=== PATIENT | male | born 1940 | race Caucasian/White ===

== ENCOUNTER 2017-09-01 12:52 | Emergency (ER) ==
[2017-09-01 13:43] LABS: #Basophils 0.1 thou/uL (0.0-0.2); #Eosinphils 0.1 thou/uL (0.0-0.7); #Monocytes 0.7 thou/uL (0.11-0.59); #Neutrophils 7.7 thou/uL (1.40-6.50); %Basophils 0.5 % (0.0-1.0); %Eosinophils 1.1 % (0.0-10.0); %Lymphocytes 19.1 % (21.0-51.0); %Monocytes 6.6 % (0.0-10.0); %Neutrophils 72.6 % (42.0-75.0); Hemoglobin 12.3 g/dL (14.0-18.0); Mean Corpuscular HGB CONC 30.7 g/dL (32.0-36.0); Mean Corpuscular Hemoglobin 27.6 pg (27.0-31.0); Mean Corpuscular Volume 90.1 fl (80.0-94.0); Mean Platelet Volume 7.2 fL (7.4-10.4); Platelet Count 224 thou/uL (130-400); RBC Distribution Width 13.1 % (11.5-14.5); Red Blood Cell (RBC) Count 4.46 mill/uL (4.70-6.10); White Blood Cell (WBC) Count 10.6 thou/uL (4.8-10.8)
== END 2017-09-01 14:32 | disposition home or self-care (01) ==
LOC: ERS 12:52
DX: K92.2 Gastrointestinal hemorrhage, unspecified (principal); I10 Essential (primary) hypertension; N40.1 Benign prostatic hyperplasia with lower urinary tract symptoms; R33.8 Other retention of urine; Z79.899 Other long term (current) drug therapy
CPT/HCPCS: 36415; 85025; 99285

== ENCOUNTER 2017-09-12 12:34 | Day surgery (SDC) | payer MEDICARE ==
[2017-09-11 09:19] VITALS: BMI 42.9
[2017-09-12] MEDS ORDERED: PROPOFOL 200 MG/20 ML VIAL ONE (14:59)
--- NOTE | 2017-09-12 17:45 | OP ---
DATE OF PROCEDURE: 09/12/2017 PROCEDURE PERFORMED: Colonoscopy with polypectomy, control of hemorrhage. INDICATIONS: Hematochezia, personal history of colonic polyps (unknown number and histology). DESCRIPTION OF PROCEDURE: After the risks and benefits of the procedure were explained to the patien t including risks of infection, bleeding, perforation, reaction to anesthesia and/or pain, informed c onsent was obtained. The patient was then taken to the endoscopy suite where deep sedation was admin istered via propofol and anesthesia support. Once adequate sedation was achieved, the standard colon oscope was then introduced into the rectum and advanced to the cecum with the findings listed below. The quality of the prep was initially fair, but converted to a good prep with aggressive irrigation and suctioning. The patient tolerated the procedure well with no immediate perioperative complicatio ns. DIGITAL RECTAL EXAM: Small external hemorrhoids were noted on external examination. COLON FINDINGS: Normal appearing mucosa was seen within the cecum; however, a large bulbous appearin g ileocecal valve was seen with no evidence of nodularity or polypoid features. Normal appearing muc magali was also seen at the appendiceal orifice as well as the ascending colon. A 4-5 mm polyp was seen in the midtransverse colon and completely removed with cold snare polypectomy. The polyp was retrie brandi and placed in a specimen jar for evaluation. Two additional polyps were seen in the descending c olon measuring approximately 4-6 mm in size and completely removed with hot snare cautery polypectomy and cold snare polypectomy. Both polyps were removed completely and retrieved and placed in specime n jar for evaluation. A large pedunculated polyp measuring approximately 8-9 mm in size was seen at 35 cm past the anal verge. This was completely removed part way down the stalk with snare cautery po lypectomy. The polyp was then retrieved and placed in specimen jar for evaluation. Hemoclip x2 was then placed at opposite its adjacent to each other on the stalk to prevent any post-polypectomy bleed with the likelihood of a large vessel in the stalk high. Significant diverticulosis was seen in the ascending, transverse, descending and sigmoid colons with the presence of small, medium and large erika wel diverticula. Normal appearing mucosa was seen in the rectum with small internal hemorrhoids seen on rectal retroflexion. IMPRESSION: 1. A 4-5 mm ascending colon polyp, completely removed with cold snare polypectomy. 2. Two descending colon polyps measuring 4-6 mm in size were completely removed with snare cautery a nd cold snare polypectomies. 3. A large 8-9 mm pedunculated polyp seen at 35 cm, status post hot snare polypectomy. 4. Severe pancolonic diverticulosis. 5. Both internal and external hemorrhoids (most likely reason for the patient's hematochezia). RECOMMENDATIONS: 1. We will follow up on the biopsy results with repeat colonoscopy depending on pathology. 2. We would recommend a higher fiber diet given presence of severe diverticulosis and hemorrhoids. 3. Would avoid increased straining with bowel movements, and/or spending prolonged amount of time on the toilet as this can exacerbate hemorrhoids. 4. Follow up in GI clinic as needed.
== END 2017-09-12 16:30 | disposition home or self-care (01) ==
LOC: SDC 12:34
PROVIDERS: ATTEND Internal Medicine
PROC: 0DBM8ZX Excision of Descending Colon, Via Natural or Artificial Opening Endoscopic, Diagnostic (ICD-10-PCS; principal; 2017-09-12)
PROC: 0DBL8ZX Excision of Transverse Colon, Via Natural or Artificial Opening Endoscopic, Diagnostic (ICD-10-PCS; 2017-09-12)
DX: K92.1 Melena (principal); D12.4 Benign neoplasm of descending colon; K63.5 Polyp of colon; K64.4 Residual hemorrhoidal skin tags; K57.30 Diverticulosis of large intestine without perforation or abscess without bleeding; E78.00 Pure hypercholesterolemia, unspecified; I10 Essential (primary) hypertension; M19.90 Unspecified osteoarthritis, unspecified site; E07.9 Disorder of thyroid, unspecified; Z79.82 Long term (current) use of aspirin; Z79.899 Other long term (current) drug therapy; Z86.010 Personal history of colon polyps; Z98.890 Other specified postprocedural states
CPT/HCPCS: 88305; J2704

== ENCOUNTER 2022-06-22 10:18 | Emergency (ER) | payer MEDICARE ==
[2022-06-22 11:25] LABS: #Basophils 0.1 thou/uL (0.0-0.2); #Eosinphils 0.3 thou/uL (0.0-0.7); #Lymphocytes 2.5 thou/uL (1.20-3.40); #Monocytes 0.7 thou/uL (0.11-0.59); #Neutrophils 6.2 thou/uL (1.40-6.50); %Basophils 0.7 % (0.0-1.0); %Eosinophils 2.6 % (0.0-10.0); %Lymphocytes 25.9 % (21.0-51.0); %Monocytes 7.4 % (0.0-10.0); %Neutrophils 63.5 % (42.0-75.0); Hemoglobin 12.8 g/dL (14.0-18.0); Mean Corpuscular HGB CONC 31.4 g/dL (32.0-36.0); Mean Corpuscular Hemoglobin 28.8 pg (27.0-31.0); Mean Corpuscular Volume 91.7 fl (78.0-98.0); Mean Platelet Volume 7.3 fL (7.4-10.4); Platelet Count 230 10x3/uL (130-400); RBC Distribution Width 13.8 % (11.5-14.5); Red Blood Cell (RBC) Count 4.44 mill/uL (4.70-6.10); White Blood Cell (WBC) Count 9.8 10x3/uL (4.8-10.8)
[2022-06-22 12:01] LABS: ALT (SGPT) 18 U/L (8-55); AST (SGOT) 16 U/L (5-34); Alkaline Phosphatase 73 U/L (40-110); Anion Gap 12 mmol/L (10-20); BUN (Urea Nitrogen) 31 mg/dL (8.4-25.7); Bilirubin, Total 0.5 mg/dL (0.2-1.2); Calc. Creatinine Clearance 0 mL/min (70-130); Calcium 8.8 mg/dL (7.8-10.44); Carbon Dioxide 24 mmol/L (23-31); Chloride 97 mmol/L (98-107); Estimated GFR 58; Globulin 3.1 g/dL (2.4-3.5); Glucose 159 mg/dL (83-110); Potassium 4.3 mmol/L (3.5-5.1); Protein, Total 7.1 g/dL (5.8-8.1); Sodium 129 mmol/L (136-145)
== END 2022-06-22 13:25 | disposition home or self-care (01) ==
LOC: ERS 10:18
DX: N30.01 Acute cystitis with hematuria (principal); R33.9 Retention of urine, unspecified; I10 Essential (primary) hypertension; Z79.899 Other long term (current) drug therapy
CPT/HCPCS: 36415; 51702; 80053; 85025; 87086